=== PATIENT | male | born 1945 | race Caucasian/White ===

== ENCOUNTER 2020-11-28 06:49 | Inpatient (IN) | payer MEDICARE ==
[2020-11-28] VITALS (51 sets, daily range): BP systolic 90–142; BP diastolic 60–103
[~2020-11-28] VITALS: Ht 175.3 cm; Wt 69.1 kg
[2020-11-28] MEDS ORDERED: ACETAMINOPHEN 650MG SUPP PR STA (06:57)
[2020-11-28] MEDS ORDERED: VANCOMYCIN 1 G PREMIX 200 ML IV ONE (07:00)
[2020-11-28] MEDS ORDERED: PIPERACILLIN/TAZ 3.375G PREMIX 50 ML IV ONE (07:00)
[2020-11-28] MEDS ORDERED: SODIUM CHLORIDE 0.9% 1000ML BAG (SEPSIS BOLUS) IV ONE (07:30)
[2020-11-28] MEDS ORDERED: SUCCINYLCHOLINE CHLORIDE 200MG/10ML IV ONE ×2 (07:30→12:07)
[2020-11-28] MEDS ORDERED: MIDAZOLAM HCL 50 MG in DEXTROSE 5% WATER 40 ML IV ONE (07:30)
[2020-11-28] MEDS ORDERED: VECURONIUM BROMIDE 10 MG/VIAL IV ONE ×2 (07:30→12:07)
[2020-11-28] MEDS ORDERED: LORAZEPAM 2MG/ML CPJ IV ONE (07:45)
[2020-11-28] MEDS ORDERED: MIDAZOLAM HCL 100 MG in SODIUM CHLORIDE 0.9% 100 ML IV PRN (07:45)
[2020-11-28 07:47] LABS: BASOPHILS % 0.2 % (0.0-2.0); EOSINOPHILS % 0.1 % (0.0-5.0); HEMATOCRIT. 41.2 % (42.0-52.0); HEMOGLOBIN. 13.8 g/dL (14.0-18.0); MEAN CORPUSCULAR HEMOGLOBIN 30.1 pg (28.0-32.0); MEAN PLATELET VOLUME 8.6 fl (7.4-10.4); MONOCYTES % 9.8 % (2.0-8.0); NEUTROPHILS % 81.9 % (40.0-76.0); PLATELET 185 x1000/uL (130-400); RED BLOOD CELL COUNT 4.58 mill/uL (4.7-6.1); RED CELL DISTRIBUTION WIDTH 14.4 % (11.6-14.6)
[2020-11-28 07:54] LABS: CHLORIDE 110 mEq/L (98-107)
[2020-11-28 07:56] LABS: INR 1.3; PROTHROMBIN TIME 13.5 sec (9.6-11.0)
[2020-11-28 07:58] LABS: ETHANOL BLOOD < 10 mg/dL
[2020-11-28 08:01] LABS: CLARITY URINE CLOUDY (CLEAR); COLOR URINE YELLOW (YELLOW); KETONES URINE NEGATIVE (NEGATIVE); LEUKOCYTE ESTERASE URINE 3+ (NEGATIVE); NITRITE URINE NEGATIVE (NEGATIVE); OCCULT BLOOD URINE 3+ (NEGATIVE); PH URINE 6.5 (4.5-8.0); PROTEIN URINE TRACE (NEGATIVE); SPECIFIC GRAVITY URINE 1.012 (1.005-1.030); UROBILINOGEN URINE 0.2 E.U./dL (0.2-1.0)
[2020-11-28 08:25] LABS: BG BASE EXCESS -6.2 mmol/L (-2.0-2.0); BG DEOXYHEMOGLOBIN 2.8 % (0.0-5.0); BG FRACTION INSPIRED OXYGEN 100; BG HCO3 ACT 19.9 mmol/L (22.0-26.0); BG METHEMOGLOBIN 0.2 % (0.0-1.5); BG OXYGEN SATURATION 97.2 % (92.0-98.5); BG PH 7.294 (7.350-7.450); BG PO2 116.9 mmHg (75.0-100.0); BG SAMPLE SITE RIGHT RADIAL; BG TOTAL RESPIRATORY RATE 16 b/min; BG VENT MODE VENT - AC
[2020-11-28] MEDS ORDERED: NOREPINEPHRINE 8 MG in DEXT 5% WATER 242 ML IV PRN ×2 (09:30→17:45)
[2020-11-28] MEDS ORDERED: NOREPINEPHRINE 8MG/250ML PMX 250 ML IV PRN (09:45)
[2020-11-28] MEDS ORDERED: ETOMIDATE 2MG/ML 10ML VIAL IV ONE (12:07)
[2020-11-28] MEDS ORDERED: SODIUM CHLORIDE 0.9% 10ML VIAL ONE (12:07)
[2020-11-28] MEDS ORDERED: IPRATROPIUM/ALBUTEROL 0.5-3(2.5)MG/3ML NEB HHN PRN (12:15)
[2020-11-28] MEDS ORDERED: MEROPENEM 1,000 MG in SODIUM CHLORIDE 0.9% 100 ML IV SCH (12:15)
[2020-11-28] MEDS: MEROPENEM 1000MG in NORMAL SALINE 100ML IV SCH (15:11)
[2020-11-28] MEDS: DEXT 5%/0.45% NACL 1000ML 1,000 ML IV SCH (15:12)
[2020-11-28] MEDS: IPRATROPIUM/ALBUTEROL 0.5-3(2.5)MG/3ML NEB HHN SCH ×2 (16:42→20:09)
[2020-11-28] MEDS ORDERED: MIDAZOLAM HCL 100 MG in SODIUM CHLORIDE 0.9% 80 ML IV PRN (17:30)
[2020-11-28] MEDS ORDERED: NOREPINEPHRINE 32 MG in DEXT 5% WATER 218 ML IV PRN (17:30)
[2020-11-28] MEDS ORDERED: ONDANSETRON HCL 4MG/2ML INJ IV PRN (19:30)
[2020-11-28] MEDS ORDERED: PIPERACILLIN/TAZ 3.375G PREMIX 50 ML IV SCH (19:30)
[2020-11-28] MEDS ORDERED: MAGNESIUM/ALUMINUM HYDROXIDE/SIMETHICONE 30ML UDC PO PRN (19:30)
[2020-11-28] MEDS ORDERED: ACETAMINOPHEN 650MG SUPP PR PRN (19:30)
[2020-11-28] MEDS ORDERED: ENOXAPARIN 30MG/0.3ML SYR SUBCUT SCH (20:00)
[2020-11-28] MEDS: PIPERACILLIN/TAZOBACTAM 3.375 G in DEXT 5% WATER 100 ML IV SCH (20:39)
[2020-11-29] VITALS (90 sets, daily range): BP systolic 98–154; BP diastolic 62–95
[2020-11-29] MEDS: IPRATROPIUM/ALBUTEROL 0.5-3(2.5)MG/3ML NEB HHN SCH ×7 (00:16→23:37)
[2020-11-29] MEDS: MEROPENEM 1000MG in NORMAL SALINE 100ML IV SCH (01:51)
[2020-11-29] MEDS: PIPERACILLIN/TAZOBACTAM 3.375 G in DEXT 5% WATER 100 ML IV SCH ×2 (04:30→13:44)
[2020-11-29 05:39] LABS: CREATINE KINASE MB FRACTION 3.4 ng/mL (0.5-3.6)
[2020-11-29] MEDS ORDERED: VANCOMYCIN 1 G PREMIX 200 ML IV SCH (06:00)
[2020-11-29] MEDS ORDERED: VANCOMYCIN 750 MG PREMIX 150 ML IV SCH (06:00)
[2020-11-29 09:14] LABS: BG BASE EXCESS -4.1 mmol/L (-2.0-2.0); BG CARBOXYHEMOGLOBIN 0.3 % (0.5-1.5); BG DEOXYHEMOGLOBIN 1.4 % (0.0-5.0); BG FRACTION INSPIRED OXYGEN 70; BG HCO3 ACT 20.1 mmol/L (22.0-26.0); BG METHEMOGLOBIN 0.3 % (0.0-1.5); BG OXYGEN SATURATION 98.6 % (92.0-98.5); BG PCO2 34.1 mmHg (35.0-45.0); BG PH 7.389 (7.350-7.450); BG PO2 240.8 mmHg (75.0-100.0); BG SAMPLE SITE RIGHT RADIAL; BG TOTAL HEMOGLOBIN 11.7 g/dL (12.0-18.0); BG VENT MODE VENT - AC
[2020-11-29] MEDS: MEROPENEM-0.9% SODIUM CHLORIDE 50 ML IV SCH ×2 (09:30→21:25)
[2020-11-29] MEDS: DEXT 5%/0.45% NACL 1000ML 1,000 ML IV SCH (09:30)
[2020-11-29] MEDS: ASPIRIN 81MG EC TABLET PO SCH (09:30)
[2020-11-29] MEDS: PANTOPRAZOLE SODIUM 40 MG/VIAL IV SCH (13:44)
[2020-11-29 15:07] LABS: HEMATOCRIT. 32.3 % (42.0-52.0); HEMOGLOBIN. 11.2 g/dL (14.0-18.0); MEAN CORPUSCULAR HEMOGLOBIN 30.8 pg (28.0-32.0); MEAN PLATELET VOLUME 8.7 fl (7.4-10.4); RED BLOOD CELL COUNT 3.63 mill/uL (4.7-6.1); RED CELL DISTRIBUTION WIDTH 14.7 % (11.6-14.6)
[2020-11-29 15:31] LABS: CHLORIDE 114 mEq/L (98-107)
[2020-11-29 16:08] LABS: PLATELET 23 x1000/uL (130-400)
[2020-11-29] MEDS ORDERED: POTASSIUM CHLORIDE INJ 40 MEQ in DEXT 5% WATER 250 ML IV NR (16:30)
[2020-11-29 20:43] LABS: PLATELET ESTIMATE MARKEDLY DECREASED
[2020-11-30] VITALS (90 sets, daily range): BP systolic 99–142; BP diastolic 56–86
[2020-11-30] MEDS: DEXT 5%/0.45% NACL 1000ML 1,000 ML IV SCH (01:58)
[2020-11-30] MEDS: IPRATROPIUM/ALBUTEROL 0.5-3(2.5)MG/3ML NEB HHN SCH ×4 (03:05→20:29)
[2020-11-30 04:26] LABS: CHLORIDE 113 mEq/L (98-107)
[2020-11-30 09:06] LABS: BG BASE EXCESS -6.9 mmol/L (-2.0-2.0); BG CARBOXYHEMOGLOBIN 0.3 % (0.5-1.5); BG DEOXYHEMOGLOBIN 2.1 % (0.0-5.0); BG FRACTION INSPIRED OXYGEN 65; BG HCO3 ACT 18.2 mmol/L (22.0-26.0); BG OXYGEN SATURATION 97.9 % (92.0-98.5); BG OXYHEMOGLOBIN 97.6 % (94.0-97.0); BG PCO2 35.1 mmHg (35.0-45.0); BG PH 7.333 (7.350-7.450); BG PO2 133.7 mmHg (75.0-100.0); BG SAMPLE SITE RIGHT RADIAL; BG TOTAL HEMOGLOBIN 10.8 g/dL (12.0-18.0); BG VENT MODE VENT - AC
[2020-11-30] MEDS: ASPIRIN 81MG EC TABLET PO SCH (10:05)
[2020-11-30] MEDS: MEROPENEM-0.9% SODIUM CHLORIDE 50 ML IV SCH ×2 (10:05→20:56)
[2020-11-30] MEDS: PANTOPRAZOLE SODIUM 40 MG/VIAL IV SCH (10:07)
[2020-11-30 11:18] LABS: HEMATOCRIT. 29.4 % (42.0-52.0); HEMOGLOBIN. 10.1 g/dL (14.0-18.0); MEAN CORPUSCULAR HEMOGLOBIN 30.4 pg (28.0-32.0); MEAN CORPUSCULAR VOLUME 88.6 fL (80.0-94.0); RED BLOOD CELL COUNT 3.32 mill/uL (4.7-6.1); RED CELL DISTRIBUTION WIDTH 15.2 % (11.6-14.6)
[2020-11-30] MEDS: VANCOMYCIN 750 MG PREMIX 150 ML IV SCH ×2 (11:56→23:12)
[2020-11-30 12:11] LABS: CHLORIDE 113 mEq/L (98-107)
[2020-11-30 13:58] LABS: BG BASE EXCESS -2.5 mmol/L (-2.0-2.0); BG CARBOXYHEMOGLOBIN 0.3 % (0.5-1.5); BG DEOXYHEMOGLOBIN 3.5 % (0.0-5.0); BG FRACTION INSPIRED OXYGEN 40; BG HCO3 ACT 20.9 mmol/L (22.0-26.0); BG METHEMOGLOBIN 0.3 % (0.0-1.5); BG OXYGEN SATURATION 96.5 % (92.0-98.5); BG OXYHEMOGLOBIN 95.9 % (94.0-97.0); BG PCO2 31.3 mmHg (35.0-45.0); BG PH 7.442 (7.350-7.450); BG PO2 89.6 mmHg (75.0-100.0); BG SAMPLE SITE RIGHT RADIAL; BG TOTAL HEMOGLOBIN 10.4 g/dL (12.0-18.0); BG VENT MODE VENT - AC
[2020-11-30 15:17] LABS: PLATELET ESTIMATE MARKEDLY DECREASED
[2020-11-30 15:20] LABS: PLATELET 24 x1000/uL (130-400)
[2020-11-30 15:21] LABS: MEAN PLATELET VOLUME 9.5 fl (7.4-10.4)
[2020-12-01] VITALS (96 sets, daily range): BP systolic 104–147; BP diastolic 60–98
[2020-12-01] MEDS: IPRATROPIUM/ALBUTEROL 0.5-3(2.5)MG/3ML NEB HHN SCH ×6 (00:32→20:07)
[2020-12-01] MEDS: DEXT 5%/0.45% NACL 1000ML 1,000 ML IV SCH ×2 (05:10→20:48)
[2020-12-01 08:42] LABS: BG BASE EXCESS -1.3 mmol/L (-2.0-2.0); BG CARBOXYHEMOGLOBIN 0.3 % (0.5-1.5); BG DEOXYHEMOGLOBIN 1.8 % (0.0-5.0); BG FRACTION INSPIRED OXYGEN 40; BG HCO3 ACT 21.7 mmol/L (22.0-26.0); BG METHEMOGLOBIN 0.1 % (0.0-1.5); BG OXYGEN SATURATION 98.2 % (92.0-98.5); BG OXYHEMOGLOBIN 97.8 % (94.0-97.0); BG PCO2 30.5 mmHg (35.0-45.0); BG PH 7.471 (7.350-7.450); BG PO2 128.3 mmHg (75.0-100.0); BG SAMPLE SITE RIGHT RADIAL; BG TOTAL HEMOGLOBIN 9.9 g/dL (12.0-18.0); BG VENT MODE VENT - AC
[2020-12-01] MEDS: DOCUSATE SODIUM 100MG CAPSULE PO PRN (08:46)
[2020-12-01] MEDS: PANTOPRAZOLE SODIUM 40 MG/VIAL IV SCH (08:46)
[2020-12-01] MEDS: ASPIRIN 81MG EC TABLET PO SCH (08:46)
[2020-12-01] MEDS: MEROPENEM-0.9% SODIUM CHLORIDE 50 ML IV SCH ×2 (08:46→20:42)
[2020-12-01 10:12] LABS: HEMATOCRIT. 27.5 % (42.0-52.0); HEMOGLOBIN. 9.7 g/dL (14.0-18.0); MEAN CORPUSCULAR HEMOGLOBIN 30.7 pg (28.0-32.0); MEAN CORPUSCULAR VOLUME 86.7 fL (80.0-94.0); MEAN PLATELET VOLUME 10.1 fl (7.4-10.4); PLATELET 59 x1000/uL (130-400); RED BLOOD CELL COUNT 3.17 mill/uL (4.7-6.1); RED CELL DISTRIBUTION WIDTH 14.2 % (11.6-14.6)
[2020-12-01 10:19] LABS: CHLORIDE 108 mEq/L (98-107)
[2020-12-01 10:27] LABS: LDL CHOLESTEROL 64 mg/dL (5-100)
[2020-12-01 10:30] LABS: PHOSPHORUS 1.5 mg/dL (2.5-4.9)
[2020-12-01] MEDS: VANCOMYCIN 750 MG PREMIX 150 ML IV SCH ×2 (11:59→22:59)
[2020-12-01] MEDS ORDERED: POTASSIUM PHOS,M-BASIC-D-BASIC 20 MMOL in DEXT 5% WATER 243.3333 ML IV SCH (12:30)
[2020-12-01 13:00] LABS: PROTHROMBIN TIME 10.8 sec (9.6-11.0)
[2020-12-01 13:25] LABS: PLATELET ESTIMATE DECREASED
[2020-12-01 13:41] LABS: FIBRINOGEN > 900 mg/dL (200-400)
[2020-12-01] MEDS: ACETAMINOPHEN 325MG TABLET PO PRN (16:44)
[2020-12-02] VITALS (96 sets, daily range): BP systolic 99–159; BP diastolic 63–100
[2020-12-02] MEDS: IPRATROPIUM/ALBUTEROL 0.5-3(2.5)MG/3ML NEB HHN SCH ×6 (03:54→20:44)
[2020-12-02 05:46] LABS: HEMATOCRIT. 28.4 % (42.0-52.0); HEMOGLOBIN. 9.7 g/dL (14.0-18.0); MEAN CORPUSCULAR HEMOGLOBIN 30.3 pg (28.0-32.0); MEAN CORPUSCULAR VOLUME 88.8 fL (80.0-94.0); MEAN PLATELET VOLUME 9.9 fl (7.4-10.4); PLATELET 96 x1000/uL (130-400); RED CELL DISTRIBUTION WIDTH 14.5 % (11.6-14.6)
[2020-12-02 05:53] LABS: CHLORIDE 111 mEq/L (98-107)
[2020-12-02 08:09] LABS: BG BASE EXCESS 0.1 mmol/L (-2.0-2.0); BG CARBOXYHEMOGLOBIN 0.3 % (0.5-1.5); BG DEOXYHEMOGLOBIN 2.7 % (0.0-5.0); BG FRACTION INSPIRED OXYGEN 40; BG HCO3 ACT 23.8 mmol/L (22.0-26.0); BG METHEMOGLOBIN 0.3 % (0.0-1.5); BG OXYGEN SATURATION 97.3 % (92.0-98.5); BG OXYHEMOGLOBIN 96.7 % (94.0-97.0); BG PCO2 34.9 mmHg (35.0-45.0); BG PH 7.452 (7.350-7.450); BG SAMPLE SITE RIGHT RADIAL; BG TOTAL HEMOGLOBIN 9.5 g/dL (12.0-18.0); BG TOTAL RESPIRATORY RATE 18 b/min; BG VENT MODE VENT - AC
[2020-12-02] MEDS: PANTOPRAZOLE SODIUM 40 MG/VIAL IV SCH (08:54)
[2020-12-02] MEDS: MEROPENEM-0.9% SODIUM CHLORIDE 50 ML IV SCH (08:55)
[2020-12-02] MEDS: DOCUSATE SODIUM 100MG CAPSULE PO PRN (08:55)
[2020-12-02 11:07] LABS: PLATELET ESTIMATE DECREASED
[2020-12-02] MEDS: VANCOMYCIN 1500MG in DEXTROSE 5% WATER 250ML IV SCH (12:24)
[2020-12-02] MEDS: DEXT 5%/0.45% NACL 1000ML 1,000 ML IV SCH (15:25)
[2020-12-02] MEDS: ACETAMINOPHEN 325MG TABLET PO PRN (19:53)
[2020-12-02] MEDS ORDERED: POTASSIUM CHLORIDE INJ 40 MEQ in DEXT 5% WATER 250 ML IV NR (20:00)
[2020-12-02] MEDS: MEROPENEM 1000MG in NORMAL SALINE 100ML IV SCH (21:35)
[2020-12-03] VITALS (94 sets, daily range): BP systolic 104–140; BP diastolic 59–89
[2020-12-03] MEDS: IPRATROPIUM/ALBUTEROL 0.5-3(2.5)MG/3ML NEB HHN SCH ×7 (00:15→23:50)
[2020-12-03] MEDS: VANCOMYCIN 1500MG in DEXTROSE 5% WATER 250ML IV SCH (05:13)
[2020-12-03 05:47] LABS: CHLORIDE 110 mEq/L (98-107)
[2020-12-03 05:54] LABS: HEMATOCRIT. 28.5 % (42.0-52.0); HEMOGLOBIN. 9.8 g/dL (14.0-18.0); MEAN CORPUSCULAR HEMOGLOBIN 30.1 pg (28.0-32.0); MEAN CORPUSCULAR VOLUME 87.7 fL (80.0-94.0); MEAN PLATELET VOLUME 9.8 fl (7.4-10.4); PLATELET 180 x1000/uL (130-400); RED BLOOD CELL COUNT 3.25 mill/uL (4.7-6.1); RED CELL DISTRIBUTION WIDTH 14.5 % (11.6-14.6)
[2020-12-03] MEDS: MEROPENEM 1000MG in NORMAL SALINE 100ML IV SCH (09:15)
[2020-12-03] MEDS: PANTOPRAZOLE SODIUM 40 MG/VIAL IV SCH (09:15)
[2020-12-03] MEDS: DEXT 5%/0.45% NACL 1000ML 1,000 ML IV SCH (09:16)
[2020-12-03] MEDS ORDERED: LIDOCAINE HCL 1% 20ML VIAL (Pyxis) INJ ONE (09:19)
[2020-12-03] MEDS: DOCUSATE SODIUM SUGAR FREE 100MG/10ML UDC PO PRN (14:59)
[2020-12-03 16:07] LABS: PLATELET ESTIMATE NORMAL
[2020-12-04] VITALS (96 sets, daily range): BP systolic 102–165; BP diastolic 64–103
[2020-12-04] MEDS: DEXT 5%/0.45% NACL 1000ML 1,000 ML IV SCH ×2 (01:21→17:37)
[2020-12-04] MEDS: IPRATROPIUM/ALBUTEROL 0.5-3(2.5)MG/3ML NEB HHN SCH ×5 (04:08→20:45)
[2020-12-04 08:03] LABS: BG BASE EXCESS -0.7 mmol/L (-2.0-2.0); BG CARBOXYHEMOGLOBIN 0.3 % (0.5-1.5); BG DEOXYHEMOGLOBIN 2.1 % (0.0-5.0); BG FRACTION INSPIRED OXYGEN 35; BG HCO3 ACT 22.9 mmol/L (22.0-26.0); BG METHEMOGLOBIN 0.3 % (0.0-1.5); BG OXYGEN SATURATION 97.9 % (92.0-98.5); BG OXYHEMOGLOBIN 97.3 % (94.0-97.0); BG PCO2 33.5 mmHg (35.0-45.0); BG PH 7.452 (7.350-7.450); BG PO2 116.7 mmHg (75.0-100.0); BG SAMPLE SITE RIGHT RADIAL; BG TOTAL HEMOGLOBIN 9.9 g/dL (12.0-18.0); BG TOTAL RESPIRATORY RATE 16 b/min; BG VENT MODE VENT - AC
[2020-12-04] MEDS: PANTOPRAZOLE SODIUM 40 MG/VIAL IV SCH (08:36)
[2020-12-05] VITALS (70 sets, daily range): BP systolic 103–157; BP diastolic 62–97
[2020-12-05] MEDS: IPRATROPIUM/ALBUTEROL 0.5-3(2.5)MG/3ML NEB HHN SCH ×6 (00:41→20:59)
[2020-12-05 08:21] LABS: BG BASE EXCESS 1.8 mmol/L (-2.0-2.0); BG CARBOXYHEMOGLOBIN 0.3 % (0.5-1.5); BG DEOXYHEMOGLOBIN 1.9 % (0.0-5.0); BG FRACTION INSPIRED OXYGEN 35; BG HCO3 ACT 26.1 mmol/L (22.0-26.0); BG METHEMOGLOBIN 0.3 % (0.0-1.5); BG OXYGEN SATURATION 98.1 % (92.0-98.5); BG OXYHEMOGLOBIN 97.5 % (94.0-97.0); BG PCO2 39.6 mmHg (35.0-45.0); BG PH 7.436 (7.350-7.450); BG PO2 130.6 mmHg (75.0-100.0); BG SAMPLE SITE RIGHT RADIAL; BG TOTAL HEMOGLOBIN 10.1 g/dL (12.0-18.0); BG VENT MODE VENT - AC
[2020-12-05] MEDS: PANTOPRAZOLE SODIUM 40 MG/VIAL IV SCH (09:57)
[2020-12-05] MEDS: DEXT 5%/0.45% NACL 1000ML 1,000 ML IV SCH (12:00)
[2020-12-06] VITALS (49 sets, daily range): BP systolic 107–159; BP diastolic 64–110
[2020-12-06] MEDS: IPRATROPIUM/ALBUTEROL 0.5-3(2.5)MG/3ML NEB HHN SCH ×6 (00:17→20:24)
[2020-12-06] MEDS: DEXT 5%/0.45% NACL 1000ML 1,000 ML IV SCH ×2 (02:19→19:00)
[2020-12-06 06:03] LABS: HEMATOCRIT. 28.2 % (42.0-52.0); HEMOGLOBIN. 9.5 g/dL (14.0-18.0); MEAN CORPUSCULAR HEMOGLOBIN 30.2 pg (28.0-32.0); MEAN CORPUSCULAR VOLUME 89.4 fL (80.0-94.0); MEAN PLATELET VOLUME 9.3 fl (7.4-10.4); PLATELET 445 x1000/uL (130-400); RED BLOOD CELL COUNT 3.15 mill/uL (4.7-6.1)
[2020-12-06 06:08] LABS: CHLORIDE 104 mEq/L (98-107)
[2020-12-06 07:19] LABS: BG BASE EXCESS 2.5 mmol/L (-2.0-2.0); BG CARBOXYHEMOGLOBIN 0.3 % (0.5-1.5); BG DEOXYHEMOGLOBIN 2.4 % (0.0-5.0); BG HCO3 ACT 26.8 mmol/L (22.0-26.0); BG METHEMOGLOBIN 0.1 % (0.0-1.5); BG OXYGEN SATURATION 97.6 % (92.0-98.5); BG OXYHEMOGLOBIN 97.2 % (94.0-97.0); BG PCO2 40.2 mmHg (35.0-45.0); BG PH 7.442 (7.350-7.450); BG PO2 113.5 mmHg (75.0-100.0); BG SAMPLE SITE RIGHT RADIAL; BG TOTAL HEMOGLOBIN 12.1 g/dL (12.0-18.0); BG VENT MODE VENT - AC
[2020-12-06] MEDS: PANTOPRAZOLE SODIUM 40 MG/VIAL IV SCH (08:35)
[2020-12-06] MEDS: METOCLOPRAMIDE HCL 10MG/2ML VIAL IV SCH ×2 (13:01→22:34)
[2020-12-06 14:31] LABS: PLATELET ESTIMATE INCREASED
[2020-12-07] VITALS (39 sets, daily range): BP systolic 102–148; BP diastolic 60–118
[2020-12-07] MEDS: IPRATROPIUM/ALBUTEROL 0.5-3(2.5)MG/3ML NEB HHN SCH ×6 (00:33→20:51)
[2020-12-07] MEDS: METOCLOPRAMIDE HCL 10MG/2ML VIAL IV SCH ×3 (06:43→21:07)
[2020-12-07 07:25] LABS: BG BASE EXCESS 0.1 mmol/L (-2.0-2.0); BG CARBOXYHEMOGLOBIN 0.3 % (0.5-1.5); BG HCO3 ACT 23.5 mmol/L (22.0-26.0); BG OXYHEMOGLOBIN 95.7 % (94.0-97.0); BG PCO2 34.4 mmHg (35.0-45.0); BG PH 7.453 (7.350-7.450); BG PO2 101.9 mmHg (75.0-100.0); BG SAMPLE SITE RIGHT RADIAL; BG TOTAL HEMOGLOBIN 12.8 g/dL (12.0-18.0); BG VENT MODE VENT - AC
[2020-12-07] MEDS: PANTOPRAZOLE SODIUM 40 MG/VIAL IV SCH (08:59)
[2020-12-07] MEDS: DEXT 5%/0.45% NACL 1000ML 1,000 ML IV SCH (13:42)
[2020-12-07] MEDS: DOCUSATE SODIUM SUGAR FREE 100MG/10ML UDC PO PRN (21:07)
[2020-12-07] MEDS: ACETAMINOPHEN 325MG TABLET PO PRN (21:07)
[2020-12-08] VITALS (69 sets, daily range): BP systolic 108–153; BP diastolic 62–87
[2020-12-08] MEDS: IPRATROPIUM/ALBUTEROL 0.5-3(2.5)MG/3ML NEB HHN SCH ×5 (00:45→20:56)
[2020-12-08] MEDS: METOCLOPRAMIDE HCL 10MG/2ML VIAL IV SCH ×3 (05:02→21:31)
[2020-12-08 05:15] LABS: HEMATOCRIT. 27.7 % (42.0-52.0); HEMOGLOBIN. 9.5 g/dL (14.0-18.0); MEAN CORPUSCULAR HEMOGLOBIN 30.9 pg (28.0-32.0); MEAN CORPUSCULAR VOLUME 90.4 fL (80.0-94.0); RED BLOOD CELL COUNT 3.06 mill/uL (4.7-6.1); RED CELL DISTRIBUTION WIDTH 14.2 % (11.6-14.6)
[2020-12-08] MEDS: DEXT 5%/0.45% NACL 1000ML 1,000 ML IV SCH ×2 (05:28→22:57)
[2020-12-08 05:54] LABS: CHLORIDE 104 mEq/L (98-107)
[2020-12-08 06:37] LABS: MEAN PLATELET VOLUME 9.3 fl (7.4-10.4); PLATELET 729 x1000/uL (130-400)
[2020-12-08] MEDS: PANTOPRAZOLE SODIUM 40 MG/VIAL IV SCH (08:15)
[2020-12-08] MEDS: ZINC SULFATE 220 MG ( 50 ) CAPSULE PO SCH (08:15)
[2020-12-08] MEDS: ASCORBIC ACID 500 MG TABLET PO SCH (08:16)
[2020-12-08] MEDS: ENOXAPARIN 40MG/0.4ML SYR SUBCUT SCH (08:16)
[2020-12-08] MEDS: ASPIRIN 81MG TABLET PO SCH (08:16)
[2020-12-08 09:04] LABS: BG BASE EXCESS -0.2 mmol/L (-2.0-2.0); BG DEOXYHEMOGLOBIN 2.3 % (0.0-5.0); BG FRACTION INSPIRED OXYGEN 30; BG METHEMOGLOBIN 0.1 % (0.0-1.5); BG OXYGEN SATURATION 97.7 % (92.0-98.5); BG OXYHEMOGLOBIN 97.6 % (94.0-97.0); BG PCO2 37.6 mmHg (35.0-45.0); BG PH 7.423 (7.350-7.450); BG PO2 108.1 mmHg (75.0-100.0); BG SAMPLE SITE RIGHT RADIAL; BG TOTAL HEMOGLOBIN 10.4 g/dL (12.0-18.0); BG VENT MODE VENT - AC
[2020-12-08 09:07] LABS: PLATELET ESTIMATE INCREASED
[2020-12-08 11:45] LABS: CLARITY URINE CLEAR (CLEAR); COLOR URINE DARK YELLOW (YELLOW); KETONES URINE NEGATIVE (NEGATIVE); LEUKOCYTE ESTERASE URINE TRACE (NEGATIVE); NITRITE URINE NEGATIVE (NEGATIVE); OCCULT BLOOD URINE 1+ (NEGATIVE); PH URINE 6.5 (4.5-8.0); PROTEIN URINE 1+ (NEGATIVE); SPECIFIC GRAVITY URINE 1.015 (1.005-1.030)
[2020-12-08] MEDS: DOCUSATE SODIUM SUGAR FREE 100MG/10ML UDC PO PRN (21:31)
[2020-12-09] VITALS (46 sets, daily range): BP systolic 99–153; BP diastolic 64–94
[2020-12-09] MEDS: IPRATROPIUM/ALBUTEROL 0.5-3(2.5)MG/3ML NEB HHN SCH ×5 (00:28→20:44)
[2020-12-09 05:42] LABS: CHLORIDE 105 mEq/L (98-107)
[2020-12-09 05:49] LABS: HEMATOCRIT. 27.7 % (42.0-52.0); HEMOGLOBIN. 9.3 g/dL (14.0-18.0); MEAN CORPUSCULAR HEMOGLOBIN 30.2 pg (28.0-32.0); MEAN CORPUSCULAR VOLUME 90.1 fL (80.0-94.0); MEAN PLATELET VOLUME 8.2 fl (7.4-10.4); PLATELET 822 x1000/uL (130-400); RED BLOOD CELL COUNT 3.07 mill/uL (4.7-6.1); RED CELL DISTRIBUTION WIDTH 14.7 % (11.6-14.6)
[2020-12-09] MEDS: METOCLOPRAMIDE HCL 10MG/2ML VIAL IV SCH ×3 (06:03→21:46)
[2020-12-09 07:26] LABS: BG BASE EXCESS 1.5 mmol/L (-2.0-2.0); BG CARBOXYHEMOGLOBIN 0.3 % (0.5-1.5); BG DEOXYHEMOGLOBIN 2.7 % (0.0-5.0); BG HCO3 ACT 25.4 mmol/L (22.0-26.0); BG METHEMOGLOBIN 0.3 % (0.0-1.5); BG OXYGEN SATURATION 97.3 % (92.0-98.5); BG OXYHEMOGLOBIN 96.7 % (94.0-97.0); BG PCO2 37.2 mmHg (35.0-45.0); BG PH 7.452 (7.350-7.450); BG PO2 100.9 mmHg (75.0-100.0); BG SAMPLE SITE RIGHT RADIAL; BG TOTAL HEMOGLOBIN 9.6 g/dL (12.0-18.0); BG VENT MODE VENT - AC
[2020-12-09] MEDS: ZINC SULFATE 220 MG ( 50 ) CAPSULE PO SCH (08:36)
[2020-12-09] MEDS: ENOXAPARIN 40MG/0.4ML SYR SUBCUT SCH (08:36)
[2020-12-09] MEDS: ASPIRIN 81MG TABLET PO SCH (08:36)
[2020-12-09] MEDS: PANTOPRAZOLE SODIUM 40 MG/VIAL IV SCH (08:36)
[2020-12-09] MEDS: ASCORBIC ACID 500 MG TABLET PO SCH (08:36)
[2020-12-09] MEDS: DEXT 5%/0.45% NACL 1000ML 1,000 ML IV SCH (14:44)
[2020-12-09 15:47] LABS: PLATELET ESTIMATE MARKEDLY INCREASED
[2020-12-10] VITALS (48 sets, daily range): BP systolic 110–150; BP diastolic 63–85
[2020-12-10] MEDS: IPRATROPIUM/ALBUTEROL 0.5-3(2.5)MG/3ML NEB HHN SCH ×4 (02:24→19:57)
[2020-12-10] MEDS: DEXT 5%/0.45% NACL 1000ML 1,000 ML IV SCH ×2 (04:59→21:43)
[2020-12-10] MEDS: METOCLOPRAMIDE HCL 10MG/2ML VIAL IV SCH ×3 (05:00→21:42)
[2020-12-10 05:24] LABS: HEMATOCRIT. 29.8 % (42.0-52.0); HEMOGLOBIN. 9.5 g/dL (14.0-18.0); MEAN CORPUSCULAR HEMOGLOBIN 28.9 pg (28.0-32.0); MEAN CORPUSCULAR VOLUME 90.7 fL (80.0-94.0); MEAN PLATELET VOLUME 8.3 fl (7.4-10.4); RED BLOOD CELL COUNT 3.29 mill/uL (4.7-6.1); RED CELL DISTRIBUTION WIDTH 14.9 % (11.6-14.6)
[2020-12-10 05:33] LABS: CHLORIDE 105 mEq/L (98-107)
[2020-12-10 05:35] LABS: PLATELET 1048 x1000/uL (130-400)
[2020-12-10 08:55] LABS: BG BASE EXCESS 0.2 mmol/L (-2.0-2.0); BG CARBOXYHEMOGLOBIN 0.3 % (0.5-1.5); BG DEOXYHEMOGLOBIN 2.4 % (0.0-5.0); BG FRACTION INSPIRED OXYGEN 30; BG HCO3 ACT 24.6 mmol/L (22.0-26.0); BG METHEMOGLOBIN 0.3 % (0.0-1.5); BG OXYGEN SATURATION 97.6 % (92.0-98.5); BG PCO2 39.1 mmHg (35.0-45.0); BG PH 7.417 (7.350-7.450); BG PO2 107.1 mmHg (75.0-100.0); BG SAMPLE SITE RIGHT RADIAL; BG TOTAL HEMOGLOBIN 9.8 g/dL (12.0-18.0); BG VENT MODE VENT - AC
[2020-12-10] MEDS: PANTOPRAZOLE SODIUM 40 MG/VIAL IV SCH (09:11)
[2020-12-10] MEDS: ZINC SULFATE 220 MG ( 50 ) CAPSULE PO SCH (09:11)
[2020-12-10] MEDS: ASCORBIC ACID 500 MG TABLET PO SCH (09:11)
[2020-12-10] MEDS: DOCUSATE SODIUM SUGAR FREE 100MG/10ML UDC PO PRN (09:11)
[2020-12-10] MEDS: ASPIRIN 81MG TABLET PO SCH (09:11)
[2020-12-10] MEDS: ENOXAPARIN 40MG/0.4ML SYR SUBCUT SCH (09:14)
[2020-12-10 12:20] LABS: PLATELET ESTIMATE MARKEDLY INCREASED
[2020-12-10] MEDS: BISACODYL 10MG SUPP PR PRN (16:07)
[2020-12-11] VITALS (43 sets, daily range): BP systolic 95–153; BP diastolic 68–102
[2020-12-11] MEDS: IPRATROPIUM/ALBUTEROL 0.5-3(2.5)MG/3ML NEB HHN SCH ×4 (01:58→20:25)
[2020-12-11] MEDS: METOCLOPRAMIDE HCL 10MG/2ML VIAL IV SCH ×3 (05:49→21:34)
[2020-12-11] MEDS: PANTOPRAZOLE SODIUM 40 MG/VIAL IV SCH (11:33)
[2020-12-11] MEDS: DOCUSATE SODIUM SUGAR FREE 100MG/10ML UDC PO PRN (11:33)
[2020-12-11] MEDS: ASCORBIC ACID 500 MG TABLET PO SCH (11:34)
[2020-12-11] MEDS: ZINC SULFATE 220 MG ( 50 ) CAPSULE PO SCH (11:34)
[2020-12-11] MEDS: ASPIRIN 81MG TABLET PO SCH (11:34)
[2020-12-11 13:01] LABS: CHLORIDE 107 mEq/L (98-107)
[2020-12-11 13:02] LABS: BASOPHILS % 1.5 % (0.0-2.0); EOSINOPHILS % 1.7 % (0.0-5.0); HEMATOCRIT. 27.7 % (42.0-52.0); HEMOGLOBIN. 9.5 g/dL (14.0-18.0); LYMPHOCYTES % 9.9 % (20.0-50.0); MEAN CORPUSCULAR HEMOGLOBIN 30.3 pg (28.0-32.0); MEAN PLATELET VOLUME 7.6 fl (7.4-10.4); MONOCYTES % 8.9 % (2.0-8.0); RED BLOOD CELL COUNT 3.15 mill/uL (4.7-6.1); RED CELL DISTRIBUTION WIDTH 14.2 % (11.6-14.6)
[2020-12-11] MEDS: ENOXAPARIN 40MG/0.4ML SYR SUBCUT SCH (13:16)
[2020-12-11] MEDS: BISACODYL 10MG SUPP PR PRN (16:22)
[2020-12-12] VITALS (44 sets, daily range): BP systolic 108–173; BP diastolic 61–119
[2020-12-12] MEDS: IPRATROPIUM/ALBUTEROL 0.5-3(2.5)MG/3ML NEB HHN SCH ×3 (00:40→20:04)
[2020-12-12] MEDS: METOCLOPRAMIDE HCL 10MG/2ML VIAL IV SCH ×3 (06:28→22:04)
[2020-12-12 07:56] LABS: BG BASE EXCESS -0.1 mmol/L (-2.0-2.0); BG CARBOXYHEMOGLOBIN 0.3 % (0.5-1.5); BG DEOXYHEMOGLOBIN 2.9 % (0.0-5.0); BG FRACTION INSPIRED OXYGEN 30; BG HCO3 ACT 23.8 mmol/L (22.0-26.0); BG METHEMOGLOBIN 0.3 % (0.0-1.5); BG OXYGEN SATURATION 97.1 % (92.0-98.5); BG OXYHEMOGLOBIN 96.5 % (94.0-97.0); BG PCO2 35.5 mmHg (35.0-45.0); BG PH 7.444 (7.350-7.450); BG PO2 98.3 mmHg (75.0-100.0); BG SAMPLE SITE RIGHT RADIAL; BG TOTAL HEMOGLOBIN 9.7 g/dL (12.0-18.0); BG TOTAL RESPIRATORY RATE 16 b/min; BG VENT MODE VENT - AC
[2020-12-12 08:45] LABS: BASOPHILS % 2.5 % (0.0-2.0); EOSINOPHILS % 2.5 % (0.0-5.0); HEMATOCRIT. 28.8 % (42.0-52.0); HEMOGLOBIN. 9.6 g/dL (14.0-18.0); LYMPHOCYTES % 11.3 % (20.0-50.0); MEAN CORPUSCULAR HEMOGLOBIN 29.5 pg (28.0-32.0); MEAN CORPUSCULAR VOLUME 88.8 fL (80.0-94.0); MEAN PLATELET VOLUME 7.4 fl (7.4-10.4); MONOCYTES % 12.1 % (2.0-8.0); NEUTROPHILS % 71.6 % (40.0-76.0); RED BLOOD CELL COUNT 3.24 mill/uL (4.7-6.1); RED CELL DISTRIBUTION WIDTH 14.7 % (11.6-14.6)
[2020-12-12 08:47] LABS: CHLORIDE 106 mEq/L (98-107)
[2020-12-12 08:54] LABS: PLATELET 1261 x1000/uL (130-400)
[2020-12-12] MEDS: ASPIRIN 81MG TABLET PO SCH (09:17)
[2020-12-12] MEDS: ZINC SULFATE 220 MG ( 50 ) CAPSULE PO SCH (09:17)
[2020-12-12] MEDS: ENOXAPARIN 40MG/0.4ML SYR SUBCUT SCH (09:17)
[2020-12-12] MEDS: PANTOPRAZOLE SODIUM 40 MG/VIAL IV SCH (09:17)
[2020-12-12] MEDS: ASCORBIC ACID 500 MG TABLET PO SCH (09:17)
[2020-12-12 12:03] LABS: PLATELET 1174 x1000/uL (130-400)
[2020-12-12 16:54] LABS: PROTHROMBIN TIME 10.9 sec (9.6-11.0)
[2020-12-12] MEDS: ACETAMINOPHEN 325MG TABLET PO PRN (19:50)
[2020-12-13] VITALS (49 sets, daily range): BP systolic 130–174; BP diastolic 72–103
[2020-12-13] MEDS: IPRATROPIUM/ALBUTEROL 0.5-3(2.5)MG/3ML NEB HHN SCH ×4 (02:00→19:55)
[2020-12-13] MEDS: METOCLOPRAMIDE HCL 10MG/2ML VIAL IV SCH ×3 (05:08→23:15)
[2020-12-13] MEDS: ZINC SULFATE 220 MG ( 50 ) CAPSULE PO SCH (08:41)
[2020-12-13] MEDS: ASCORBIC ACID 500 MG TABLET PO SCH (08:41)
[2020-12-13] MEDS: ENOXAPARIN 40MG/0.4ML SYR SUBCUT SCH (08:41)
[2020-12-13] MEDS: DOCUSATE SODIUM SUGAR FREE 100MG/10ML UDC PO PRN (08:41)
[2020-12-13] MEDS: ASPIRIN 81MG TABLET PO SCH (08:41)
[2020-12-13] MEDS: PANTOPRAZOLE SODIUM 40 MG/VIAL IV SCH (10:45)
[2020-12-13] MEDS: ACETAMINOPHEN 325MG TABLET PO PRN (23:15)
[2020-12-14] VITALS (53 sets, daily range): BP systolic 110–169; BP diastolic 63–110
[2020-12-14] MEDS: IPRATROPIUM/ALBUTEROL 0.5-3(2.5)MG/3ML NEB HHN SCH ×2 (01:52→14:56)
[2020-12-14] MEDS: METOCLOPRAMIDE HCL 10MG/2ML VIAL IV SCH ×2 (05:49→15:01)
[2020-12-14] MEDS: ACETAMINOPHEN 325MG TABLET PO PRN ×2 (05:50→12:33)
[2020-12-14] MEDS: DOCUSATE SODIUM SUGAR FREE 100MG/10ML UDC PO PRN (09:13)
[2020-12-14] MEDS: ASPIRIN 81MG TABLET PO SCH (09:13)
[2020-12-14] MEDS: ZINC SULFATE 220 MG ( 50 ) CAPSULE PO SCH (09:13)
[2020-12-14] MEDS: PANTOPRAZOLE SODIUM 40 MG/VIAL IV SCH (09:13)
[2020-12-14] MEDS: ASCORBIC ACID 500 MG TABLET PO SCH (09:14)
[2020-12-14] MEDS: ENOXAPARIN 40MG/0.4ML SYR SUBCUT SCH (09:14)
[2020-12-14] MEDS ORDERED: CLONIDINE 0.1MG TABLET PO PRN (10:30)
[2020-12-14] MEDS ORDERED: AMLODIPINE 10MG TABLET PO SCH (10:30)
[2020-12-14] MEDS: MORPHINE SULFATE 4 MG/ML CPJ (NOT FOR IM USE) IV PRN (17:14)
[2020-12-15] VITALS (29 sets, daily range): BP systolic 79–123; BP diastolic 51–71
[2020-12-15] MEDS: MORPHINE SULFATE 4 MG/ML CPJ (NOT FOR IM USE) IV PRN ×2 (04:57→22:54)
[2020-12-16] VITALS (13 sets, daily range): BP systolic 88–114; BP diastolic 50–76
[2020-12-17] VITALS: BP 104/69
[2020-12-17 04:00] VITALS: BP 104/59
[2020-12-17 08:00] VITALS: BP 104/58
[2020-12-17 12:00] VITALS: BP 82/51
[2020-12-17 16:00] VITALS: BP 106/70
[2020-12-17 20:00] VITALS: BP 106/61
[2020-12-18] VITALS: BP 105/59
[2020-12-18 04:00] VITALS: BP 90/62
[2020-12-18 08:00] VITALS: BP 114/60
[2020-12-18 12:00] VITALS: BP 108/68
[2020-12-18 16:00] VITALS: BP 106/68
[2020-12-18 20:00] VITALS: BP 113/65
[2020-12-19] VITALS: BP 104/62
[2020-12-19 04:00] VITALS: BP 107/64
[2020-12-19 08:27] VITALS: BP 104/61
[2020-12-19 12:00] VITALS: BP 103/55
[2020-12-19 16:00] VITALS: BP 119/66
[2020-12-19 20:00] VITALS: BP 116/62
[2020-12-20] VITALS: BP 100/67
[2020-12-20 04:00] VITALS: BP 95/60
[2020-12-20 08:00] VITALS: BP 91/57
== END 2020-12-20 12:06 | DRG 870 ==
LOC: ER 06:49 → MICUNO 08:27 → EDBD 08:27 → EDBEDREQTM 09:15 → EDBEDREQ 09:15 → ENRESERV 09:35 → MICUSO 12-15 05:37 → 6EST 12-16 04:05
PROVIDERS: ADMIT Family Medicine; ATTEND Family Medicine
PROC: 5A1955Z Respiratory Ventilation, Greater than 96 Consecutive Hours (ICD-10-PCS; principal; 2020-11-28)
PROC: 02HV33Z Insertion of Infusion Device into Superior Vena Cava, Percutaneous Approach (ICD-10-PCS; 2020-11-28)
PROC: B548ZZA Ultrasonography of Superior Vena Cava, Guidance (ICD-10-PCS; 2020-11-28)
PROC: 06HY33Z Insertion of Infusion Device into Lower Vein, Percutaneous Approach (ICD-10-PCS; 2020-11-28)
PROC: B54CZZA Ultrasonography of Left Lower Extremity Veins, Guidance (ICD-10-PCS; 2020-11-28)
PROC: 0BH17EZ Insertion of Endotracheal Airway into Trachea, Via Natural or Artificial Opening (ICD-10-PCS; 2020-11-28)
PROC: 4A10X4Z Monitoring of Central Nervous Electrical Activity, External Approach (ICD-10-PCS; 2020-12-01)
DX: A41.9 Sepsis, unspecified organism (principal); G93.41 Metabolic encephalopathy; I50.41 Acute combined systolic (congestive) and diastolic (congestive) heart failure; J69.0 Pneumonitis due to inhalation of food and vomit; J96.21 Acute and chronic respiratory failure with hypoxia; N17.0 Acute kidney failure with tubular necrosis; R65.21 Severe sepsis with septic shock; I63.9 Cerebral infarction, unspecified; E87.2 Acidosis; I13.0 Hypertensive heart and chronic kidney disease with heart failure and stage 1 through stage 4 chronic kidney disease, or unspecified chronic kidney disease; I42.9 Cardiomyopathy, unspecified; K57.92 Diverticulitis of intestine, part unspecified, without perforation or abscess without bleeding; N39.0 Urinary tract infection, site not specified; K56.7 Ileus, unspecified; Z51.5 Encounter for palliative care; Z66 Do not resuscitate; Z20.822 Contact with and (suspected) exposure to COVID-19; N18.9 Chronic kidney disease, unspecified; I87.2 Venous insufficiency (chronic) (peripheral); D69.6 Thrombocytopenia, unspecified; I48.0 Paroxysmal atrial fibrillation; S90.32XA Contusion of left foot, initial encounter; X58.XXXA Exposure to other specified factors, initial encounter; S90.31XA Contusion of right foot, initial encounter; S90.01XA Contusion of right ankle, initial encounter; S80.11XA Contusion of right lower leg, initial encounter; L97.529 Non-pressure chronic ulcer of other part of left foot with unspecified severity; L97.519 Non-pressure chronic ulcer of other part of right foot with unspecified severity; I73.9 Peripheral vascular disease, unspecified; Y93.89 Activity, other specified; Y92.89 Other specified places as the place of occurrence of the external cause; Y99.8 Other external cause status
CPT/HCPCS: 36415; 36600; 70551; 71045; 71250; 74018; 74176; 76937; 80048; 80053; 80202; 80320; 81003; 82375; 82550; 82553; 82805; 83605; 83721; 83735; 83880; 84100; 84145; 84484; 85025; 85379; 85384; 87070; 87426; 93005; 93306; 93880; 93923; 94002; 94003; 94640; 95816; 99291; A6261; C1725; C9113; J0330; J1650; J2185; J2250; J2270; J2543; J2765; J3370; J3480; J3490; J7030; J7040; J7060; A4315; G0480